=== PATIENT | female | born 1950 | race Caucasian/White ===

== ENCOUNTER 2017-08-10 20:53 | Emergency (ER) | payer OTHER ==
[~2017-08-10] VITALS: Ht 160 cm; Wt 64.0 kg
[2017-08-10] MEDS ORDERED: LEVO25TA4 PO (21:07)
[2017-08-10] MEDS ORDERED: LOSA25TA21 PO (21:07)
[2017-08-10] MEDS ORDERED: ESCI20TA PO (21:07)
[2017-08-10] MEDS ORDERED: ALBU8.5H8 IH (21:07)
[2017-08-10] MEDS ORDERED: HYDR200T4 PO (21:07)
[2017-08-10] MEDS ORDERED: SIMV-259 PO (21:07)
[2017-08-10] MEDS ORDERED: CALC-20 PO (21:07)
[2017-08-10] MEDS ORDERED: ASPI81 PO (21:07)
[2017-08-10] MEDS ORDERED: OMEP20 PO (21:07)
[2017-08-10 21:42] LABS: BASOPHILS # (AUTO) 0.02 K/uL (0.00-0.20); BASOPHILS % (AUTO) 0.2 % (0.0-2.0); EOSINOPHILS # (AUTO) 0.14 K/uL (0.00-0.70); EOSINOPHILS % (AUTO) 1.43 % (1.0-6.0); HEMATOCRIT 38.5 % (36-46); LYMPHOCYTES # (AUTO) 1.9 K/uL (1.0-4.8); MEAN CORPUSCULAR HEMOGLOBIN 29.1 pg (26.0-34.0); MEAN CORPUSCULAR HGB CONC 33.8 G/dL (31.0-37.0); MEAN CORPUSCULAR VOLUME 86 fL (80-100); MONOCYTES # (AUTO) 0.6 K/uL (0.1-1.0); NEUTROPHILS % (AUTO) 72.4 % (40.0-70.0); PLATELET COUNT (AUTO) 218 K/uL (150-450); RED BLOOD CELL COUNT(AUTO) 4.47 MIL/uL (4.00-5.20); RED CELL DISTRIBUTION WIDTH 13.4 % (11.5-14.5); WHITE BLOOD COUNT (AUTO) 9.7 K/uL (4.5-11.0)
[2017-08-10 21:59] LABS: ANION GAP 12 mmol/L (8-16); CALCIUM, TOTAL 9.3 mg/dL (8.8-10.5); CARBON DIOXIDE 25 mmol/L (22-29); CHLORIDE 104 mmol/L (98-107); CREATININE 0.76 mg/dL (0.60-1.30); GLOMERULAR FILTR. RATE CALC > 60 mL/min (>60); POTASSIUM 4.1 mmol/L (3.5-5.1); SODIUM SERUM 141 mmol/L (136-145); UREA NITROGEN, BLOOD 14 mg/dL (7-18)
[2017-08-10 22:06] LABS: ALANINE AMINOTRANSFERASE 19 U/L (12-78); ALBUMIN 4.2 g/dL (3.4-5.0); ASPARTATE AMINOTRANSFERASE 12 U/L (15-37); BILIRUBIN,TOTAL 0.6 mg/dL (0.1-1.0); TOTAL PROTEIN, SERUM 7.8 g/dL (6.4-8.2)
[2017-08-10] MEDS ORDERED: SODIUM CHLORIDE 0.9% 1,000 ML IV ONE (22:30)
[2017-08-10 22:57] LABS: APPEARANCE,URINE CLEAR (CLEAR); GLUCOSE, URINE (UA) NEGATIVE (NEGATIVE); KETONES,URINE NEGATIVE (NEGATIVE); LEUKOCYTE ESTERASE ,URINE MODERATE (NEGATIVE); OCCULT BLOOD,URINE MODERATE (NEGATIVE); PROTEIN,URINE NEGATIVE (NEGATIVE)
[2017-08-10 22:58] LABS: ADD UA MICROSCOPIC YES
[2017-08-10 23:06] LABS: SQUAMOUS EPITHELIAL CELL,UR Rare /LPF (None Seen)
[2017-08-10] MEDS ORDERED: SODIUM CHLORIDE 0.9% 100 ML ONE (23:18)
[2017-08-10] MEDS ORDERED: IOVERSOL 350 MG/ML 100 ML VIAL ONE (23:18)
[2017-08-11 01:27] VITALS: BP 133/60
== END 2017-08-11 01:48 | disposition home or self-care (01) ==
LOC: EMS 20:54
DX: K52.9 Noninfective gastroenteritis and colitis, unspecified (principal); E78.00 Pure hypercholesterolemia, unspecified; I10 Essential (primary) hypertension; Z88.8 Allergy status to other drugs, medicaments and biological substances; Z88.2 Allergy status to sulfonamides; Z79.82 Long term (current) use of aspirin
CPT/HCPCS: 36415; 74177; 80053; 81001; 84484; 85025; 87086; 93005; 96360; 99285; J7030; J7050; Q9967

== ENCOUNTER 2018-07-02 15:29 | Emergency (ER) | payer OTHER ==
[~2018-07-02] VITALS: Ht 160 cm; Wt 56.8 kg
[~2018-07-02 15:29] MED LIST: ALBU8.5H8 IH; ASPI81 PO; CALC-20 PO; ESCI20TA PO; HYDR200T4 PO; LEVO25TA4 PO; LOSA25TA21 PO; OMEP20 PO; SIMV-259 PO
[2018-07-02] MEDS ORDERED: KETOROLAC TROMETHAMINE 10 MG TABLET PO ONE (17:30)
[2018-07-02 19:00] VITALS: BP 159/95
== END 2018-07-02 19:00 | disposition home or self-care (01) ==
LOC: EMS 15:30
DX: M16.12 Unilateral primary osteoarthritis, left hip (principal); E78.00 Pure hypercholesterolemia, unspecified; I10 Essential (primary) hypertension; M32.9 Systemic lupus erythematosus, unspecified; M06.9 Rheumatoid arthritis, unspecified; Z88.2 Allergy status to sulfonamides; Z88.8 Allergy status to other drugs, medicaments and biological substances; Z79.82 Long term (current) use of aspirin; Z79.899 Other long term (current) drug therapy
CPT/HCPCS: 73503; 99284